=== PATIENT | female | born 1980 | race Caucasian/White ===

== ENCOUNTER 2016-11-25 16:06 | Emergency (ER) | payer MEDICAID ==
[~2016-11-25] VITALS: Ht 152.4 cm; Wt 155.0 kg
[~2016-11-25 16:06] MED LIST: DICY20 PO
[2016-11-25] MEDS ORDERED: KETOROLAC TROMETHAMINE 60 MG/2 ML VIAL IM ONE (18:15)
[2016-11-25 18:43] LABS: INFLUENZA TYPE B NEGATIVE FOR TYPE B (NEGATIVE)
[2016-11-25 18:55] VITALS: BP 121/81
[2016-11-25] MEDS ORDERED: PredniSONE 20 MG TABLET PO ONE (19:00)
== END 2016-11-25 19:31 | disposition home or self-care (01) ==
LOC: EMS 16:09
DX: J04.0 Acute laryngitis (principal); J06.9 Acute upper respiratory infection, unspecified
CPT/HCPCS: 71010; 81025; 87804; 93005; 96372; 99285; J1885; J7512

== ENCOUNTER 2017-09-16 15:43 | Emergency (ER) | payer MEDICAID ==
[~2017-09-16] VITALS: Ht 157.5 cm; Wt 72.7 kg
[2017-09-16] MEDS ORDERED: SODIUM CHLORIDE 0.9% 1,000 ML IV ONE (16:15)
[2017-09-16] MEDS ORDERED: ONDANSETRON HCL 4 MG/2 ML VIAL IVP ONE (16:15)
[2017-09-16] MEDS ORDERED: DICYCLOMINE HCL 20 MG TABLET PO ONE (16:15)
[2017-09-16 16:26] LABS: BASOPHILS % (AUTO) 0.3 % (0.0-2.0); EOSINOPHILS % (AUTO) 1.4 % (1.0-6.0); HEMATOCRIT 37.4 % (36-46); HEMOGLOBIN 13.1 g/dL (12.0-16.0); LYMPHOCYTES # (AUTO) 2.6 K/uL (1.0-4.8); LYMPHOCYTES % (AUTO) 22.9 % (22.0-44.0); MEAN CORPUSCULAR HEMOGLOBIN 31.4 pg (26.0-34.0); MEAN CORPUSCULAR VOLUME 90 fL (80-100); MONOCYTES # (AUTO) 0.5 K/uL (0.1-1.0); MONOCYTES % (AUTO) 4.6 % (2.0-9.0); NEUTROPHILS % (AUTO) 70.8 % (40.0-70.0); PLATELET COUNT (AUTO) 224 K/uL (150-450); RED BLOOD CELL COUNT(AUTO) 4.18 MIL/uL (4.00-5.20); RED CELL DISTRIBUTION WIDTH 12.6 % (11.5-14.5); WHITE BLOOD COUNT (AUTO) 11.2 K/uL (4.5-11.0)
[2017-09-16 16:28] LABS: APPEARANCE,URINE CLOUDY (CLEAR); GLUCOSE, URINE (UA) NEGATIVE (NEGATIVE); KETONES,URINE NEGATIVE (NEGATIVE); LEUKOCYTE ESTERASE ,URINE NEGATIVE (NEGATIVE); OCCULT BLOOD,URINE NEGATIVE (NEGATIVE); PH,URINE 5.5 (5.0-8.0); PROTEIN,URINE NEGATIVE (NEGATIVE)
[2017-09-16 16:36] LABS: ANION GAP 9 mmol/L (8-16); CALCIUM, TOTAL 8.6 mg/dL (8.8-10.5); CARBON DIOXIDE 28 mmol/L (22-29); CHLORIDE 102 mmol/L (98-107); CREATININE 0.69 mg/dL (0.60-1.30); GLOMERULAR FILTR. RATE CALC > 60 mL/min (>60); POTASSIUM 3.4 mmol/L (3.5-5.1); SODIUM SERUM 139 mmol/L (136-145); UREA NITROGEN, BLOOD 15 mg/dL (7-18)
[2017-09-16 16:40] LABS: RBC,URINE 0-2 /HPF (0-2); SQUAMOUS EPITHELIAL CELL,UR Many /LPF (None Seen); WBC,URINE 0-2 /HPF (0-5)
[2017-09-16 16:43] LABS: ALANINE AMINOTRANSFERASE 20 U/L (12-78); ASPARTATE AMINOTRANSFERASE 14 U/L (15-37); BILIRUBIN,TOTAL 0.5 mg/dL (0.1-1.0); TOTAL PROTEIN, SERUM 8.5 g/dL (6.4-8.2)
[2017-09-16 17:58] VITALS: BP 107/68
== END 2017-09-16 18:07 | disposition home or self-care (01) ==
LOC: EMS 15:44
DX: R10.9 Unspecified abdominal pain (principal); R19.7 Diarrhea, unspecified; R11.0 Nausea
CPT/HCPCS: 36415; 80053; 81001; 83690; 84703; 85025; 96374; 99284; J2405; J7030

== ENCOUNTER 2018-02-07 19:35 | Emergency (ER) | payer MEDICAID ==
[~2018-02-07] VITALS: Ht 152.4 cm; Wt 75.0 kg
[2018-02-07 19:58] VITALS: BP 138/76
== END 2018-02-07 20:50 | disposition home or self-care (01) ==
LOC: EMS 19:36
DX: B02.9 Zoster without complications (principal)
CPT/HCPCS: 99283

== ENCOUNTER 2018-12-19 22:09 | Emergency (ER) | payer SELFPAY ==
[~2018-12-19] VITALS: Ht 154.9 cm; Wt 75.0 kg
[2018-12-19] MEDS ORDERED: ACETAMINOPHEN 500 MG TABLET ONE (22:35)
[2018-12-19] MEDS ORDERED: ACETAMINOPHEN 500 MG TABLET PO ONE (22:45)
[2018-12-19 23:08] LABS: INFLUENZA TYPE A POSITIVE FOR TYPE A (NEGATIVE); INFLUENZA TYPE B NEGATIVE FOR TYPE B (NEGATIVE)
[2018-12-20 00:49] VITALS: BP 134/79
== END 2018-12-20 01:35 | disposition home or self-care (01) ==
LOC: EMS 22:10
DX: J10.1 Influenza due to other identified influenza virus with other respiratory manifestations (principal)
CPT/HCPCS: 87804